=== PATIENT | female | born 1960 | race Caucasian/White ===

== ENCOUNTER → 2017-05-13 | Outpatient (CLI) | payer OTHER ==
[~2017-05-13] MED LIST: ADVIL,NUPRIN,M200 MG PO; AMOXICILLIN875 MG PO; CINNAMON BARK500 MG PO; FIORICET 50-301 EAC1 PO; LISINOPRIL10 MG PO; LYRICA75 MG PO; METFORMIN HCL500 MG PO; METOPROLOL TAR100 MG PO; MULTIVITAMIN1 EAC2 PO; NEXIUM40 MG PO; OMEGA 3-6-9 11200 MG PO; ROSUVASTATIN CA10 MG PO; SYNTHROID75 MCG PO; VOLTAREN50 MG PO
== END | disposition home or self-care (01) ==
LOC: OPR 08:35 → EDSTATUS 09:00
PROC: 0FB13ZX Excision of Right Lobe Liver, Percutaneous Approach, Diagnostic (ICD-10-PCS; principal; 2017-05-13)
DX: K76.0 Fatty (change of) liver, not elsewhere classified (principal); Z00.6 Encounter for examination for normal comparison and control in clinical research program
CPT/HCPCS: 77012; 85027; 85610; 85730; 88307; 88313; J3010